=== PATIENT | female | born 1950 | race Caucasian/White ===

== ENCOUNTER → 2018-12-13 | Emergency (ER) | payer OTHER ==
[~2018-12-13] VITALS: Ht 165.1 cm; Wt 75.7 kg
== END | disposition home or self-care (01) ==
LOC: ER 20:18
DX: S80.01XA Contusion of right knee, initial encounter (principal); W18.39XA Other fall on same level, initial encounter; Y93.89 Activity, other specified; Y92.511 Restaurant or cafe as the place of occurrence of the external cause; Y99.8 Other external cause status